=== PATIENT | female | born 1960 | race Two or more races ===

== ENCOUNTER 2024-10-29 21:54 | Emergency (ER) | payer MEDICARE, MEDICAID, SELFPAY ==
[2024-10-29 21:55] VITALS: BP 160/87; PULSE 83; RESP 17; TEMP 36.6; O2SAT 97
[2024-10-29 22:03] VITALS: PULSE 80; RESP 17; O2SAT 97; BMI 34.0
--- NOTE | 2024-10-29 22:10 | EDNOTE_ITS ---
ED Fall Injury RME/HPI General Chief Complaint: Fall Stated Complaint: FALL Time Seen by Provider: 10/29/24 22:10 Arrival date/time: 10/29/24 21:54 RME / HPI RME / HPI Narrative: DR. CROWE MAIN ED EVALUATION: Patient arrived by EMS sustaining ground-level fall landing on the right side with minor avulsion to the left 5th digit and blunt trauma to the leg. Patient did not attempt to bear weight on the right leg. Denies head trauma or trauma to the neck. PMH: NEGATIVE PSH: NEGATIVE ALLERGIES: NONE SOCIAL: Non-drinker, non-smoker, no illicit drug use. Related Data Previous Rx's ?Medication ?Instructions ?Recorded ciprofloxacin HCl 500 mg tablet 500 mg PO BID #20 tabs 09/30/21 (Cipro) metronidazole 500 mg tablet 500 mg PO BID #20 tabs acetaminophen 500 mg capsule 1,000 mg (2 x 500 mg) PO TID #30 06/02/22 caps hydroxyzine HCl 50 mg tablet 50 mg PO TID PRN anxiety #20 tabs 03/24/23 acetaminophen 300 mg-codeine 15 mg 1 tab PO Q8H PRN pa in #16 tabs 10/30/24 tablet bacitracin 500 unit/gram topical 1 applic topical BID #14 grams 10/30/24 ointment naproxen 250 mg tablet 250 mg PO BID PRN pain #10 t abs 10/30/24 Allergies Allergy/AdvReac Type Severity Reaction Status Date / Time No Known Allergies Allergy Verified 06/02/22 18:59 Review of Systems Review of Systems Systems Reviewed: All systems reviewed, normal except as documented Past Medical History Past Medical History CARDIAC: Positive Cardiac Disorders, Hypercholesterolemia and Hypertension ENDOCRINE: Positive Diabetes Mellitus Type 2 PSYCHO/SOCIAL: Positive Anxiety Surgical History SURGICAL: Positive Section Social History SMOKING STATUS: Former smoker ED Exam Narrative Physical exam: GEN. APPEARANCE: The patient is alert awake oriented X-3 in no distress, lying down comfortably, does not look ill/toxic. Patient has good eye contact. Patient is cooperative. VITALS: All vitals were reviewed and the pulse ox is 96% on room air which is normal according to my interpretation. HEENT: Normocephalic, atraumatic. Pupils are equal and reactive. Oral mucosa is moist. Patent Nares NECK: Supple, nontender, no thyromegaly, no meningismus, no JVD, no step offs, no midline tenderness. CHEST: Symmetrical, atraumatic, and with equal expansion , Nontender on palpation no deformity and no crepitus. CARDIOVASCULAR: Heart regular rhythm no murmur or gallop rub or extra beats. LUNGS: Clear to auscultation bilaterally with symmetrical chest rise. No laboring tachypnea or wheezing. No intercostal subcostal retraction. No rales and no rhonchi. ABDOMEN: Soft, flat, nontender to palpation, no guarding or rebound tenderness. There are no abnormal masses palpated. Active and normal bowel sounds. EXTREMITIES: Nontender. No edema. No cyanosis. Patient is able to move all 4 extremities well and good CSM. Right hand demonstrates minor avulsion from ulnar aspect to 5th digit, FROM, sensation intact. Right wrist with mild TTP on volar aspect of scaphoid, slight pain with radial deviation of wrist, no gross edema or deformity, distal function intact. Right knee demonstrates overlying abrasion anteriorly, limited ROM due to pain, no posterior/anterior drop, distal function intact. SKIN: Warm and dry, no jaundice or rashes noted. MUSCULOSKELETAL: No lubar or midline bony tenderness. There is no CVA tenderness. No paraspinal muscle spasm or tenderness. NEURO: Patient is HOLLIDAY x 4, Cranial nerves II through XII grossly intact. There is no focal neurologic deficits noted. GCS is 15, PNS and [employer]CH[employer]IAN appear grossly intact. PSYCHIATRIC: Patient is in normal mood and affect, cooperative, no SI or HI or hallucinations. Course Quality Measures none Orders Category Date Time Status XR knee limited RT 2V Stat Exams 10/29/24 22:15 Completed XR wrist RT 2V Stat Exams 10/29/24 22:15 Completed Acetaminophen Tab [Tylenol ES Tab] Med 10/29/24 22:55 Discontinued 1,000 mg PO X1 ONE Bacitracin Oint pkt Med 10/30/24 00:34 Discontinued 2 gm TOP X1 ONE HYDROcodone*/APAP 5/325 [[place] 5/325] Med 10/29/24 22:15 Discontinued 1 tab PO X1 ONE TET,DIP/PERT AC (Adult)-Tdap [Boostrix Adult (Tdap) Med 10/29/24 22:15 Discontinued Vacc] 0.5 ml IMI .ONCE ONE Vital Signs Vital signs: Vital Signs Temperature 97.9 F 10/29/24 21:55 Pulse Rate 83 10/29/24 21:55 Respiratory Rate 17 10/29/24 21:55 Blood Pressure 160/87 H 10/29/24 21:55 Pulse Oximetry (%) 97 10/29/24 21:55 Oxygen Delivery Method Room Air 10/29/24 21:55 Fall MDM Narrative MDM Narrative:: Scribe Attestation: IHenrietta, am scribing for and in the presence of Dr. Crowe. Provider Notation: Although this document has been carefully reviewed, there may still be some phonetic and other typographical errors. These errors are purely grammatical due to imperfections in the software program and should not be construed in any way to compromise the substance of the patient's medical care during this visit. Patient arrived by EMS sustaining ground-level fall landing on the right side with minor avulsion to the left 5th digit and blunt trauma to the leg. Patient did not attempt to bear weight on the right leg. Please see PE findings. Routine x-rays of the right wrist and right knee unremarkable for acute fracture. Patient received Tetanus update, PO Tylenol, and superficial abrasion right knee was cleansed and abx dressing was added. VA wrap placed to right knee without incident. Discharged to home on analgesics and topical Bacitracin, and precautionary instructions issued. Patient data External records reviewed:: [facility] previous records (Reviewed prior ED records from 03/28/23. Patient was seen for Generalized weakness.) and EMS form Clinical information provided by:: patient and EMS Social determinants that could affect healthcare access:: none Patient has the following chronic illnesses:: Hypercholesterolemia, Hypertension, Diabetes Mellitus Type 2, Anxiety How is presenting disease/condition affected by chronic disease/condition?: exacerbated by Evaluation data The following diagnostics were reviewed and interpreted by me:: radiology exam(s) Lab and/or radiology exams considered but not ordered:: None Interpretation Summary: RADIOLOGY Wrist X-Ray: Findings: No acute fracture No dislocation Impression: No acute fracture Knee X-Ray: Findings: No acute fracture No dislocation Impression: No acute fracture Medications / Prescriptions Medications or Prescriptions considered but not ordered:: None Medication administrations:: Medication Administration History Discontinued Medications Acetaminophen (Acetaminophen 500 Mg Tablet) 1,000 mg PO X1 ONE Stop: 10/29/24 22:56 Last Admin: 10/29/24 23:06 Dose: 1,000 mg Documented By: JONELLE Hydrocodone Bitart/Acetaminophen (Hydrocodone/[place]ap 5/325 Tablet) 1 tab PO X1 ONE Stop: 10/29/24 22:16 Last Admin: 10/29/24 22:57 Dose: Not Given Documented By: JONELLE Non-Admin Reason: Discontinued Bacitracin (Bacitracin Oint 1 Gm Packet) 2 gm TOP X1 ONE Stop: 10/30/24 00:35 Diphtheria/Tetanus/Acell Pertussis (Diphth,Pertuss(Acell),Tet Vac 0.5 Ml Syr- Adult) 0.5 ml IMi .ONCE ONE Stop: 10/29/24 22:16 Last Admin: 10/29/24 23:07 Dose: 0.5 ml Documented By: JONELLE See above if any Consultations Consultation(s) initiated? (list below): No Diagnosis Fall Differential Diagnosis: syncope, dislocation of shoulder region, fracture of wrist and compression fracture Most likely diagnosis given after review of the tests above:: Contusion of knee, right, Abrasion of finger of right hand Admission Indicated Admission indicated?: not indicated Explain why admission is indicated or not indicated:: Patient does not meet admission criteria Admission Request Was there a request for admission?: No Disposition Plan Disposition Plan: Discharge Discharge Attestation Discharge Attestation: The patient and all family members were given an opportunity to ask questions and understood the discharge instructions. Discharge instructions specifically effects, indications for sooner follow up or return to the emergency department, and the expected course of current diagnosis. Patient condition: Stable Discharge Plan Plan Patient Disposition: HOME (Self Care) Prescriptions/Referrals Prescriptions/Med Rec: No Action ciprofloxacin HCl [Cipro] 500 mg tablet 500 mg PO BID Qty: 20 0RF metronidazole 500 mg tablet 500 mg PO BID Qty: 20 0RF acetaminophen 500 mg capsule 1,000 mg PO TID Qty: 30 0RF hydroxyzine HCl 50 mg tablet 50 mg PO TID PRN (Reason: anxiety) Qty: 20 0RF Referrals: No Primary/Family,Physician [Primary Care Provider] - In 1 week Problem List Clinical Impression: Contusion of knee, right, Abrasion of finger of right hand Patient/Caregiver Discharge Instructions Discharge Activity: activity as tolerated Education Materials: Bone Contusion, ED Abrasions Additional Instructions: Ice elevation/medication as directed. Return if worsening Print Language: Salvadorean Stand Alone Forms: [facility] Award Info., Patient Portal Info Letter
--- NOTE | 2024-10-29 22:15 | XR_ITS ---
Examination: Right knee 2 views Technique: AP lateral right knee 2 views Date and time: October 29, 2024 1026 hrs. Indications: Ground-level fall today with injury to the knee, knee pain. Findings: No acute fracture No dislocation Impression: No acute fracture
--- NOTE | 2024-10-29 22:15 | XR_ITS ---
Examination: Right wrist 2 views Technique: AP lateral right wrist 2 views Date and time of exam: October 29, 2024 10:20 PM Indications: Ground-level fall today with injury of the wrist, wrist pain Findings: No acute fracture No dislocation Impression: No acute fracture
[2024-10-29] MEDS: ACETAMINOPHEN 500 MG TABLET 1000 MG PO (23:06)
[2024-10-29] MEDS: DIPHTH,PERTUSS(ACELL),TET VAC 0.5 ML SYR- ADULT IMi (23:07)
[2024-10-30] MEDS: BACITRACIN OINT 1 GM PACKET 2 GM TOP (00:42)
[2024-10-30 00:43] VITALS: BP 143/79; PULSE 69; RESP 16; TEMP 36.4; O2SAT 96
--- NOTE | 2024-10-30 01:00 | PC.NURSE ---
ABRASION TO RIGHT KNEE AND RIGHT HAND CLEANED AND BACITRACIN OINTMENT APPLIED TO AREA. VA WRAP APPLIED TO RIGHT KNEE.
== END 2024-10-30 01:11 | disposition home or self-care (01) ==
PROVIDERS: Emergency Provider Emergency Medicine
DX: S60.416A Abrasion of right little finger, initial encounter (principal); S80.01XA Contusion of right knee, initial encounter; Z23 Encounter for immunization; W18.30XA Fall on same level, unspecified, initial encounter
CPT/HCPCS: 73100; 73560; 90471; 90715; 99283; A9270